=== PATIENT | female | born 1960 | race Caucasian/White ===

== ENCOUNTER 2016-07-09 10:08 | Day surgery (SDC) | payer OTHER, MEDICARE ==
[2016-07-09] MEDS ORDERED: D5 LR 1000 ML 1,000 ML IV ONE (11:06)
[2016-07-09] MEDS ORDERED: NS 500 ML IV 500 ML IV ONE (11:16)
[2016-07-09] MEDS ORDERED: DIPRIVAN VIAL 20 ML ONE (12:52)
[2016-07-09 13:42] VITALS: BP 124/68
== END 2016-07-09 13:40 | disposition home or self-care (01) ==
LOC: SURG1 10:08
PROVIDERS: ATTEND Internal Medicine Gastroenterology
PROC: 0DJD8ZZ Inspection of Lower Intestinal Tract, Via Natural or Artificial Opening Endoscopic (ICD-10-PCS; principal; 2016-07-09 14:00)
PROC: 0DBN8ZX Excision of Sigmoid Colon, Via Natural or Artificial Opening Endoscopic, Diagnostic (ICD-10-PCS; principal; 2016-07-09 14:00)
DX: Z12.11 Encounter for screening for malignant neoplasm of colon (principal); K92.1 Melena; D64.89 Other specified anemias; R10.84 Generalized abdominal pain; K63.5 Polyp of colon; K64.0 First degree hemorrhoids; Z87.19 Personal history of other diseases of the digestive system
CPT/HCPCS: A4222; A4217; J3490; J7120

== ENCOUNTER 2017-02-17 22:26 | Emergency (ER) | payer OTHER, MEDICARE ==
[~2017-02-17 22:26] MED LIST: HumuLIN R IV ONE
[2017-02-17 22:52] VITALS: BMI 25.6
[2017-02-17] MEDS ORDERED: DUONEB 0.5 MG/3 MG NEB ONE (22:54)
--- NOTE | 2017-02-17 22:55 | DR.GENAD ---
HPI - PCP Primary Care Physician: [email or web address] - Complaint/Symptoms Chief Complaint Doctors Comments: Patient states that she had been on dialysis for two years. Has been doing well. She goes to dialysis three times weekly ( ). She did not go on yesterday. She states that she got tired today and slept more than usual and mom got concerned. Patient states that she is ok. Chief Complaint:: pt c/o sob pt did not go to dialysis yesterday scheduled tomorrow - Source History Provided: Patient - Mode of Arrival Mode of Arrival: EMS - Timing Onset of Chief Complaint: 02/10/17 PMH - PMH Past Medical History: Yes Past Medical History: Anemia, Anxiety, Arthritis, COPD, Dialysis, Hypertension, Renal Disease, Seizures Past Surgical History: No Surgical History: Lithotripsy - Family History History of Family Medical Conditions: Yes Family Medical History: Diabetes Mellitus, Hypertension - Social History Type of Tobacco Use: Cigarettes Does any household member use tobacco: No Alcohol Use: None Do you use any recreational Drugs:: No Lives With: Family Lives Where: Home - infectious screening In the last 2 months have you had wt loss of >10#?: NO Have you had fever, night sweats or hemotysis?: No Have you traveled outside the country in the last 6 months?: No Isolation: Standard ROS - Review of Systems Eyes: No Symptoms Reported ENTM: No Symptoms Reported Respiratoy: Wheezing (posterior base) Cardiovascular: No Symptoms Reported Gastrointestinal/Abdominal: No Symptoms Reported Genitourinary: No Symptoms Reported Neurological: No Symptoms Reported Musculoskeletal: No Symptoms Reported Integumentary: No Symptoms Reported Hematologic/Lymphatic: No Symptoms Reported Endocrine: No Symptoms Reported Psychiatric: No Symptoms Reported All Other Systems: Reviewed and Negative PE - Vital Signs Vitals: Temperature 97.5 F Pulse Rate 72 Respiratory Rate 20 Blood Pressure [Left Femoral 175/97 Artery] Blood Pressure [Right Arm] 154/71 Blood Pressure [Left Arm] 143/86 Blood Pressure 150/85 O2 Sat by Pulse Oximetry 98 - General Limitations: No Limitations General Appearance: Alert, In No Apparent Distress - Head Head Exam: Normal Inspection, Atraumatic - Eyes Eye exam: Normal Appearance, PERRL, EOMI - ENT ENT Exam: Normal Exam, Normal Oropharynx External Ear Exam: Normal External Inspection TM/Canal Exam: Bilateral Normal Nose Exam: Normal Nose Exam Mouth Exam: Normal Inspection Throat Exam: Normal Inspection - Neck Neck Exam: Normal Inspection, Full ROM - Chest Chest Inspection: Normal Inspection - Respiratory Respiratory Exam: Normal Lung Sounds Bilat Respiratory Exam: Bilateral Decreased Breath Sounds (base) - Cardiovascular Cardiovascular Exam: Regular Rate, Normal Rhythm - Abdominal Exam Abdominal Exam: Normal Inspection, Normal Bowel Sounds Abdominal Tenderness: negative: RUQ, RLQ, LUQ, LLQ, Epigastrium, Suprapubic, Diffuse, Mild, Moderate, Severe, Other - Extremities Extremities Exam: Normal Inspection, Full ROM - Neurologic Neurological Exam: Alert, Oriented X3, CN II-XII Intact - Psychiatric Psychiatric Exam: Normal Affect, Normal Mood - Skin Skin Exam: Warm, Dry, Intact Course - Reevaluation 1st: Improved ROR - Labs Reviewed Result Diagrams: 02/17/17 23:06 02/18/17 01:10 Laboratory: WBC 9.0 X10^3/uL (3.6-10.0) 02/17/17 23:06 RBC 3.73 X10^6/uL (3.5-5.4) 02/17/17 23:06 Hgb 12.0 g/dL (12.0-16.0) 02/17/17 23:06 Hct 36.9 % (36.0-47.0) 02/17/17 23:06 MCV 99.1 fL (80.0-100.0) 02/17/17 23:06 MCH 32.1 pg (27.0-34.0) 02/17/17 23:06 MCHC 32.4 g/dL (33.0-35.0) L 02/17/17 23:06 RDW 17.0 % (11.6-16.5) H 02/17/17 23:06 Plt Count 110 X10^3/uL (150.0-450.0) L 02/17/17 23:06 MPV 8.7 fL (7.4-11.0) 02/17/17 23:06 Neut % 79.5 % (42.0-75.0) H 02/17/17 23:06 Lymph % 9.1 % (21.0-51.0) L 02/17/17 23:06 [place] % 4.4 % (0.0-13.0) 02/17/17 23:06 Eos % 5.7 % (0.9-2.9) H 02/17/17 23:06 Baso % 1.3 % (0.2-1.0) H 02/17/17 23:06 Neut # 7.2 x10^3/uL (2.2-4.8) H 02/17/17 23:06 Lymph # 0.8 X10^3/uL (1.3-2.9) L 02/17/17 23:06 [place] # 0.4 x10^3/uL (0.3-0.8) 02/17/17 23:06 Eos # 0.5 x10^3/uL (0.0-0.2) H 02/17/17 23:06 Baso # 0.1 X10^3/uL (0.0-0.1) 02/17/17 23:06 Absolute Nucleated RBC 0.0 /100WBC 02/17/17 23:06 Sodium 138 mmol/L (136-145) 02/18/17 01:10 Corrected Sodium TNP 02/18/17 01:10 Potassium 5.5 mmol/L (3.5-5.1) H 02/18/17 01:10 Chloride 105 mmol/L (98-107) 02/18/17 01:10 Carbon Dioxide 17.4 mmol/L (21-32) L 02/18/17 01:10 BUN 99 mg/dL (7-18) H 02/18/17 01:10 Creatinine 10.14 mg/dL (0.55-1.02) H 02/18/17 01:10 Est GFR (MDRD) Af Amer 5 (>60) L 02/18/17 01:10 Est GFR (MDRD) Non-Af 4 (>60) L 02/18/17 01:10 Glucose 71 mg/dL (65-99) 02/18/17 01:10 Calcium 8.9 mg/dL (8.5-10.1) 02/18/17 01:10 - XRAY XRAY Interpreted by: Radiologist (Chest: No acute problem) - Diagnosis Discharge Problem: Hyperkalemia Asthmatic bronchitis with exacerbation Qualifiers: Asthma severity: mild Asthma persistence: intermittent Qualified Code(s): J45.21 - Mild intermittent asthma with (acute) exacerbation - Discharge Plan Condition: Stable - Follow ups/Referrals Follow ups/Referrals: MANDEEP CHAVEZ [Primary Care Provider] - 3 days - Instructions
[2017-02-17] MEDS ORDERED: DUONEB 0.5 MG/3 MG ONE (23:00)
[2017-02-17 23:15] LABS: BASOPHILS # (AUTO) 0.1 X10^3/uL (0.0-0.1); BASOPHILS % (AUTO) 1.3 % (0.2-1.0); EOSINOPHILS # (AUTO) 0.5 x10^3/uL (0.0-0.2); EOSINOPHILS % (AUTO) 5.7 % (0.9-2.9); HEMATOCRIT 36.9 % (36.0-47.0); LYMPHOCYTES # (AUTO) 0.8 X10^3/uL (1.3-2.9); LYMPHOCYTES % (AUTO) 9.1 % (21.0-51.0); MEAN CORPUSCULAR HEMOGLOBIN 32.1 pg (27.0-34.0); MEAN CORPUSCULAR HGB CONC 32.4 g/dL (33.0-35.0); MEAN CORPUSCULAR VOLUME 99.1 fL (80.0-100.0); MEAN PLATELET VOLUME 8.7 fL (7.4-11.0); MONOCYTES # (AUTO) 0.4 x10^3/uL (0.3-0.8); MONOCYTES % (AUTO) 4.4 % (0.0-13.0); NEUTROPHILS # (AUTO) 7.2 x10^3/uL (2.2-4.8); NEUTROPHILS % (AUTO) 79.5 % (42.0-75.0); PLATELET COUNT 110 X10^3/uL (150.0-450.0); RED BLOOD COUNT 3.73 X10^6/uL (3.5-5.4)
[2017-02-17 23:19] LABS: CALCIUM 8.4 mg/dL (8.5-10.1); CARBON DIOXIDE 17.2 mmol/L (21-32); CREATININE 10.22 mg/dL (0.55-1.02)
--- NOTE | 2017-02-17 23:52 | RAD ---
AP Chest Indication: Shortness of breath with COPD Comparison: None available Findings: The trachea is midline. The cardiac silhouette is unremarkable. Chronic interstitial lung changes ar e again present. The lungs are clear without focal infiltrate or effusion. The bony thorax is unrem arkable. IMPRESSION: 1. No acute cardiopulmonary abnormality. Reported By:
[2017-02-18] MEDS ORDERED: D50W ABBOJECT SYR IV ONE (00:02)
[2017-02-18] MEDS ORDERED: CALCIUM GLUCONATE 10% IV ONE ×2 (00:03→00:19)
[2017-02-18] MEDS ORDERED: PROVENTIL NEB TX 0.083% 2.5MG/ 3ML ONE ×3 (00:04→00:43)
[2017-02-18] MEDS ORDERED: D5 LR 1000 ML 1,000 ML with SODIUM BICARBONATE 8.4% INJ ADULT 100 ML IV ONE ×2 (00:05)
[2017-02-18] MEDS: PROVENTIL NEB TX 0.083% 2.5MG/ 3ML NEB SCH ×2 (00:06→00:10)
[2017-02-18] MEDS ORDERED: PROVENTIL NEB TX 0.083% 2.5MG/ 3ML NEB ONE ×2 (00:09→00:35)
[2017-02-18] MEDS ORDERED: D50W ABBOJECT SYR ONE (00:19)
[2017-02-18] MEDS ORDERED: HumuLIN R ONE ×2 (00:20→00:21)
[2017-02-18 02:08] LABS: BLOOD UREA NITROGEN 99 mg/dL (7-18); CALCIUM 8.9 mg/dL (8.5-10.1); CARBON DIOXIDE 17.4 mmol/L (21-32); CHLORIDE 105 mmol/L (98-107); CREATININE 10.14 mg/dL (0.55-1.02); SODIUM 138 mmol/L (136-145); eGFR BLACK RACES 5 (>60); eGFR NON BLACK RACES 4 (>60)
[2017-02-18 03:00] VITALS: BP 156/74
[2017-02-18] MEDS ORDERED: SNACK - Diabetic Appropriate PO SCH (20:00)
== END 2017-02-18 02:50 | disposition home or self-care (01) ==
LOC: ER 22:34
DX: J45.21 Mild intermittent asthma with (acute) exacerbation (principal); R73.9 Hyperglycemia, unspecified; Z72.0 Tobacco use
CPT/HCPCS: 36415; 71010; 80048; 85025; 94640; 96365; 96374; 96375; 99283; A4222; J0610; J1815; J3490; J7613; J7620

== ENCOUNTER → 2017-03-11 | Outpatient (CLI) | payer OTHER, MEDICARE ==
[2017-02-18 03:00] VITALS: BP 156/74
--- NOTE | 2017-03-11 10:09 | RAD ---
Examination: Chest, PA and lateral views History: SOB and chest pain, previous nephrectomy Comparison reference: 02/17/2017 Findings: Continued normal heart size with clear lungs and pleural spaces. Prominence of the right prakash perior mediastinal soft tissues is attributed to patient rotation. Impression: Considering technical differences, no change, no acute disease. Reported By:
== END ==
LOC: RAD 09:43
PROVIDERS: ATTEND Nurse Practitioner Family
DX: R06.02 Shortness of breath (principal); J20.8 Acute bronchitis due to other specified organisms; J41.8 Mixed simple and mucopurulent chronic bronchitis
CPT/HCPCS: 71020

== ENCOUNTER 2017-08-18 16:01 | Observation (INO) | payer OTHER, MEDICARE ==
[2017-08-18 16:09] VITALS: BMI 23.3
--- NOTE | 2017-08-18 16:16 | DR.GENAD ---
HPI - PCP Primary Care Physician: [id number] - Complaint/Symptoms Chief Complaint Doctors Comments: Patient was transferred from dialysis due to a little chest pain and leg cramping. She has no history of cardiac disease. PMH - PMH Past Medical History: Anemia, Anxiety, Arthritis, COPD, Dialysis, Hypertension, Renal Disease, Seizures Past Surgical History: No Surgical History: Lithotripsy - Family History Family Medical History: Diabetes Mellitus, Hypertension - Social History Do you use any recreational Drugs:: No ROS - Review of Systems Eyes: No Symptoms Reported ENTM: No Symptoms Reported Respiratoy: No Symptoms Reported Cardiovascular: No Symptoms Reported Gastrointestinal/Abdominal: No Symptoms Reported Genitourinary: No Symptoms Reported Neurological: No Symptoms Reported Musculoskeletal: No Symptoms Reported Integumentary: No Symptoms Reported Hematologic/Lymphatic: No Symptoms Reported Endocrine: No Symptoms Reported Psychiatric: No Symptoms Reported All Other Systems: Reviewed and Negative PE - Vital Signs Vitals: Temperature 98.6 F Pulse Rate 81 Respiratory Rate 18 Blood Pressure [Left Femoral 175/97 Artery] Blood Pressure [Right Arm] 156/74 Blood Pressure [Left Arm] 143/86 Blood Pressure 142/86 O2 Sat by Pulse Oximetry 98 - General General Appearance: Alert, In No Apparent Distress - Head Head Exam: Normal Inspection, Atraumatic - Eyes Eye exam: Normal Appearance, PERRL, EOMI - ENT ENT Exam: Normal Exam, Normal Oropharynx External Ear Exam: Normal External Inspection TM/Canal Exam: Bilateral Normal Nose Exam: Normal Nose Exam Mouth Exam: Normal Inspection Throat Exam: Normal Inspection - Neck Neck Exam: Normal Inspection - Chest Chest Inspection: Normal Inspection - Respiratory Respiratory Exam: Normal Lung Sounds Bilat Respiratory Exam: Bilateral Clear to Auscultation - Cardiovascular Cardiovascular Exam: Regular Rate, Normal Rhythm - Abdominal Exam Abdominal Exam: Normal Inspection Abdominal Tenderness: negative: RUQ, RLQ, LUQ, LLQ, Epigastrium, Suprapubic, Diffuse, Mild, Moderate, Severe, Other - Extremities Extremities Exam: Normal Inspection, Other (cramping of lower extremities) - Back Back Exam: Normal Inspection - Neurologic Neurological Exam: Alert, Oriented X3, CN II-XII Intact - Psychiatric Psychiatric Exam: Normal Affect - Skin Skin Exam: Warm, Dry, Intact Course - Reevaluation 1st: Improved - Consultation Called: 17:35 (Dr Tatum agreed to admit for further evaluation and treatment) - Education/Counseling Educated On: Treatment, Diagnosis ROR - Labs Reviewed Laboratory Results Reviewed?: Yes (D Dimer [id number]) Result Diagrams: 08/18/17 16:25 08/18/17 16:25 Laboratory: WBC 4.9 X10^3/uL (3.6-10.0) 08/18/17 16:25 RBC 4.37 X10^6/uL (3.5-5.4) 08/18/17 16:25 Hgb 14.1 g/dL (12.0-16.0) 08/18/17 16:25 Hct 41.7 % (36.0-47.0) 08/18/17 16:25 MCV 95.5 fL (80.0-100.0) 08/18/17 16: MCH 32.2 pg (27.0-34.0) 08/18/17 16:25 MCHC 33.7 g/dL (33.0-35.0) 08/18/17 16:25 RDW 15.0 % (11.6-16.5) 08/18/17 16:25 Plt Count 76 X10^3/uL (150.0-450.0) L 08/18/17 16:25 MPV 8.3 fL (7.4-11.0) 08/18/17 16:25 Neut % (Auto) 76.5 % (42.0-75.0) H 08/18/17 16:25 Lymph % (Auto) 11.8 % (21.0-51.0) L 08/18/17 16:25 [place] % (Auto) 7.4 % (0.0-13.0) 08/18/17 16:25 Eos % (Auto) 3.6 % (0.9-2.9) H 08/18/17 16:25 Baso % (Auto) 0.7 % (0.2-1.0) 08/18/17 16:25 Neut # (Auto) 3.7 x10^3/uL (2.2-4.8) 08/18/17 16:25 Lymph # (Auto) 0.6 X10^3/uL (1.3-2.9) L 08/18/17 16:25 [place] # (Auto) 0.4 x10^3/uL (0.3-0.8) 08/18/17 16:25 Eos # (Auto) 0.2 x10^3/uL (0.0-0.2) 08/18/17 16:25 Baso # (Auto) 0.0 X10^3/uL (0.0-0.1) 08/18/17 16:25 Absolute Nucleated RBC 0.0 /100WBC 08/18/17 16:25 INR Target Range - 08/18/17 16:25 INR 0.94 (0.8-1.3) 08/18/17 16:25 APTT 25.1 SECONDS (22.9-36.5) 08/18/17 16:25 PTT Comment - 08/18/17 16:25 D-Dimer 791 ng/mL (0-400) H* 08/18/17 16:25 Sodium 136 mmol/L (136-145) 08/18/17 16:25 Corrected Sodium TNP 08/18/17 16:25 Potassium 3.6 mmol/L (3.5-5.1) 08/18/17 16:25 Chloride 95 mmol/L (98-107) L 08/18/17 16:25 Carbon Dioxide 26.0 mmol/L (21-32) 08/18/17 16:25 BUN 19 mg/dL (7-18) H 08/18/17 16:25 Creatinine 4.49 mg/dL (0.55-1.02) H 08/18/17 16:25 Est GFR (MDRD) Af Amer 13 (>60) L 08/18/17 16:25 Est GFR (MDRD) Non-Af 11 (>60) L 08/18/17 16:25 Glucose 84 mg/dL (65-99) 08/18/17 16:25 Calcium 8.6 mg/dL (8.5-10.1) 08/18/17 16:25 Corrected Calcium TNP 08/18/17 16:25 Magnesium 2.5 mg/dL (1.7-2.9) 08/18/17 16:25 Total Bilirubin 0.70 mg/dL (0.2-1.0) 08/18/17 16:25 AST 15 Units/L (15-37) 08/18/17 16:25 ALT 19 Units/L (12-78) 08/18/17 16:25 Alkaline Phosphatase 81 Units/L (46-116) 08/18/17 16:25 Creatine Kinase 109 Units/L (26-192) 08/18/17 16:25 CK-MB (CK-2) 2.6 ng/mL (0-4.0) 08/18/17 16:25 CK/CKMB % Calc 2.4 % (<4) 08/18/17 16:25 Troponin I 0.09 ng/mL (0-1.5) 08/18/17 16:25 Total Protein 8.5 g/dL (6.4-8.2) H 08/18/17 16:25 Albumin 5.1 g/dL (3.4-5.0) H 08/18/17 16:25 Globulin 3.4 g/dL (2.5-4.5) 08/18/17 16:25 Albumin/Globulin Ratio 1.5 Ratio (1.1-2.1) 08/18/17 16:25 - Diagnosis Discharge Problem: D-dimer, elevated, R/O Pulmonary Emboli Renal failure Qualifiers: Renal failure chronicity: chronic Chronic kidney disease stage: unspecified stage Qualified Code(s): N18.9 - Chronic kidney disease, unspecified - Discharge Plan Condition: Stable - Follow ups/Referrals Follow ups/Referrals: MANDEEP CHAVEZ [Primary Care Provider] - 3 days - Instructions
[2017-08-18 16:36] LABS: BASOPHILS % (AUTO) 0.7 % (0.2-1.0); EOSINOPHILS # (AUTO) 0.2 x10^3/uL (0.0-0.2); EOSINOPHILS % (AUTO) 3.6 % (0.9-2.9); HEMATOCRIT 41.7 % (36.0-47.0); HEMOGLOBIN 14.1 g/dL (12.0-16.0); LYMPHOCYTES # (AUTO) 0.6 X10^3/uL (1.3-2.9); LYMPHOCYTES % (AUTO) 11.8 % (21.0-51.0); MEAN CORPUSCULAR HEMOGLOBIN 32.2 pg (27.0-34.0); MEAN CORPUSCULAR HGB CONC 33.7 g/dL (33.0-35.0); MEAN CORPUSCULAR VOLUME 95.5 fL (80.0-100.0); MEAN PLATELET VOLUME 8.3 fL (7.4-11.0); MONOCYTES # (AUTO) 0.4 x10^3/uL (0.3-0.8); MONOCYTES % (AUTO) 7.4 % (0.0-13.0); NEUTROPHILS # (AUTO) 3.7 x10^3/uL (2.2-4.8); NEUTROPHILS % (AUTO) 76.5 % (42.0-75.0); PLATELET COUNT 76 X10^3/uL (150.0-450.0); RED BLOOD COUNT 4.37 X10^6/uL (3.5-5.4); WHITE BLOOD COUNT 4.9 X10^3/uL (3.6-10.0)
--- NOTE | 2017-08-18 16:38 | RAD ---
HISTORY: Chest pain. Study: AP portable chest Comparison: 03/11/2017 Findings: Minimal patchy infiltrate is noted in the left lung base. Otherwise , the lungs are clear. The hear t size is normal. Mild tortuosity of the aorta is present. Mild widening of the superior mediastinu m is present, unchanged. No acute bony abnormalities are identified. IMPRESSION: 1. Minimal patchy infiltrate in the left lung base. 2. Otherwise, no radiographic evidence of acute cardiopulmonary disease or significant change is not ed when compared to the prior examination. Reported By:
[2017-08-18 16:55] LABS: BLOOD UREA NITROGEN 19 mg/dL (7-18); CALCIUM 8.6 mg/dL (8.5-10.1); CHLORIDE 95 mmol/L (98-107); CREATININE 4.49 mg/dL (0.55-1.02); SODIUM 136 mmol/L (136-145); TROPONIN I 0.09 ng/mL (0-1.5); eGFR BLACK RACES 13 (>60); eGFR NON BLACK RACES 11 (>60)
[2017-08-18] MEDS ORDERED: NORFLEX INJ IVP ONE (16:58)
[2017-08-18 17:00] LABS: ALANINE AMINOTRANSFERASE 19 Units/L (12-78); ALKALINE PHOSPHATASE 81 Units/L (46-116); ASPARTATE AMINO TRANSFERASE 15 Units/L (15-37); CKMB % 2.4 % (<4); CREATINE KINASE 109 Units/L (26-192); CREATINE KINASE MB 2.6 ng/mL (0-4.0); TOTAL PROTEIN 8.5 g/dL (6.4-8.2)
[2017-08-18] MEDS ORDERED: NS 1000 ML 1,000 ML IV SCH (17:00)
[2017-08-18] MEDS ORDERED: NORFLEX INJ ONE (17:01)
[2017-08-18 17:07] LABS: ALBUMIN 5.1 g/dL (3.4-5.0); MAGNESIUM 2.5 mg/dL (1.7-2.9)
[2017-08-18] MEDS ORDERED: NORFLEX INJ IM PRN (18:24)
[2017-08-18] MEDS ORDERED: PATIENT'S HOME MEDICATION (Acetaminophen With Codeine [Tylenol W/Codeine #4 (300 Mg/60 Mg) PO SCH (18:30)
[2017-08-18] MEDS ORDERED: PHENERGAN TAB 25 MG PO PRN (18:49)
[2017-08-18] MEDS ORDERED: PROVENTIL NEB TX 0.083% 2.5MG/ 3ML ONE (19:14)
[2017-08-18] MEDS ORDERED: PROVENTIL NEB TX 0.083% 2.5MG/ 3ML NEB PRN (19:39)
[2017-08-18] MEDS: NS 1000 ML 1,000 ML IV SCH (20:59)
[2017-08-18] MEDS: DESYREL PO SCH (21:08)
[2017-08-18] MEDS: ZANTAC PO SCH (21:09)
[2017-08-18] MEDS: XANAX PO SCH (21:09)
[2017-08-18] MEDS: APRESOLINE TAB 25 MG PO SCH (21:09)
[2017-08-18] MEDS: TOPROL XL PO SCH (21:09)
[2017-08-18] MEDS: NEURONTIN CAP 100 MG PO SCH (21:10)
[2017-08-18] MEDS: NORCO 7.5/325 MG TAB PO PRN (21:10)
[2017-08-18] MEDS: FLEXERIL TAB 10 MG PO SCH (21:10)
[2017-08-18] MEDS: KEPPRA TAB 500 MG PO SCH (21:10)
[2017-08-18 23:56] LABS: CKMB % 1.4 % (<4); CREATINE KINASE 344 Units/L (26-192); TROPONIN I < 0.02 ng/mL (0-1.5)
[2017-08-19] LABS: CREATINE KINASE MB 4.7 ng/mL (0-4.0)
[2017-08-19] MEDS: PROVENTIL NEB TX 0.083% 2.5MG/ 3ML NEB SCH ×4 (01:10→17:09)
[2017-08-19] MEDS: NS 1000 ML 1,000 ML IV SCH ×3 (03:35→22:11)
[2017-08-19] MEDS: FLEXERIL TAB 10 MG PO SCH ×3 (05:17→21:07)
[2017-08-19] MEDS: APRESOLINE TAB 25 MG PO SCH ×3 (05:17→21:07)
[2017-08-19] MEDS: NORCO 7.5/325 MG TAB PO PRN ×3 (05:17→20:10)
[2017-08-19] MEDS: NEURONTIN CAP 100 MG PO SCH ×3 (05:18→21:07)
[2017-08-19 06:12] LABS: BASOPHILS % (AUTO) 1.2 % (0.2-1.0); EOSINOPHILS # (AUTO) 0.1 x10^3/uL (0.0-0.2); EOSINOPHILS % (AUTO) 3.9 % (0.9-2.9); HEMATOCRIT 36.4 % (36.0-47.0); HEMOGLOBIN 12.1 g/dL (12.0-16.0); LYMPHOCYTES % (AUTO) 37.7 % (21.0-51.0); MEAN CORPUSCULAR HEMOGLOBIN 31.8 pg (27.0-34.0); MEAN CORPUSCULAR HGB CONC 33.3 g/dL (33.0-35.0); MEAN CORPUSCULAR VOLUME 95.3 fL (80.0-100.0); MEAN PLATELET VOLUME 8.9 fL (7.4-11.0); MONOCYTES # (AUTO) 0.2 x10^3/uL (0.3-0.8); MONOCYTES % (AUTO) 8.8 % (0.0-13.0); NEUTROPHILS # (AUTO) 1.3 x10^3/uL (2.2-4.8); NEUTROPHILS % (AUTO) 48.4 % (42.0-75.0); PLATELET COUNT 59 X10^3/uL (150.0-450.0); RED BLOOD COUNT 3.82 X10^6/uL (3.5-5.4); RED CELL DISTRIBUTION WIDTH 15.4 % (11.6-16.5); WHITE BLOOD COUNT 2.7 X10^3/uL (3.6-10.0)
[2017-08-19 07:09] LABS: ALANINE AMINOTRANSFERASE 20 Units/L (12-78); ALBUMIN 3.7 g/dL (3.4-5.0); ALKALINE PHOSPHATASE 72 Units/L (46-116); ASPARTATE AMINO TRANSFERASE 12 Units/L (15-37); BLOOD UREA NITROGEN 32 mg/dL (7-18); CALCIUM 8.1 mg/dL (8.5-10.1); CARBON DIOXIDE 24.6 mmol/L (21-32); CHLORIDE 102 mmol/L (98-107); CKMB % 1.1 % (<4); COR NA(FOR HYPERGLY) 141 mmol/L (136-145); CREATINE KINASE 389 Units/L (26-192); CREATININE 6.02 mg/dL (0.55-1.02); SODIUM 139 mmol/L (136-145); TOTAL PROTEIN 6.7 g/dL (6.4-8.2); TROPONIN I < 0.02 ng/mL (0-1.5); eGFR BLACK RACES 9 (>60); eGFR NON BLACK RACES 8 (>60)
[2017-08-19 07:20] LABS: CREATINE KINASE MB 4.1 ng/mL (0-4.0)
[2017-08-19] MEDS: KEPPRA TAB 500 MG PO SCH ×2 (09:47→20:09)
[2017-08-19] MEDS: TOPROL XL PO SCH ×2 (09:47→20:10)
[2017-08-19] MEDS: COZAAR PO SCH (09:47)
[2017-08-19] MEDS: PROTONIX TAB 40 MG PO SCH (09:48)
[2017-08-19] MEDS: MIRALAX POWDER (1 DOSE 17GM) PO SCH (09:48)
[2017-08-19] MEDS: FOLIC ACID PO SCH (09:48)
[2017-08-19] MEDS: ZANTAC PO SCH (09:48)
[2017-08-19] MEDS: VIT B COMPLEX AND C PO SCH (09:48)
[2017-08-19] MEDS: XANAX PO SCH ×2 (09:49→20:10)
--- NOTE | 2017-08-19 12:57 | NM ---
HISTORY: 56-year-old female with chest pain, shortness breath and elevated D-dimer. History of COPD a nd hypertension. Study: Nuclear Medicine Ventilation Perfusion Study Comparison: Chest radiograph 08/18/2017 Technique: After the administration of 5.5 mCi of technetium 99m MAA followed by inhalation of 30.2 m Ci of technetium 99m DTPA, anterior, posterior, and lateral perfusion and ventilation images were sub mitted. Findings: Mildly heterogenous radiotracer uptake on ventilation/perfusion imaging with small nonanatomic matche d defects on ventilation and perfusion in a patient with COPD without significant segmental or subseg mental defect to suggest a pulmonary embolus. IMPRESSION: 1. Low probability V/Q scan in a patient with COPD. Reported By:
--- NOTE | 2017-08-19 13:01 | DR.H&P ---
H&P - History & Physical for Day of: H&P Date: 08/18/17 - Chief Complaint Chief Complaint: CHEST PAIN AND LEG CRAMPS - Allergies Allergies/Adverse Reactions: Allergies Allergy/AdvReac Type Severity Reaction Status Date / Time No Known Drug Allergies Allergy Verified 02/17/17 23:01 - History of Present Illness History of Present Illness: 56 WF ER ADMISSION WITH CO CP AND SEVERE LEG CRAMPS FOLLOWING DIALYSIS. PT STATES PAIN WAS CENTRAL CHEST PAIN, DENIES ANY HX OF CAD. PT HAS HX OF CRF ON DYALYSIS, HTN, OA, SEIZURE DISORDER. PT ADMITTED FOR EVALUATION OF CP, R/O AMI - Past Medical History Past Medical History: Anemia, Anxiety, Arthritis, COPD, Dialysis, Hypertension, Renal Disease, Seizures - Past Surgical History Surgical History: Lithotripsy Additional Surgical History: kidney removed. DIALYSIS ACCESS DEVICE - Family History Family Medical History: Diabetes Mellitus, Cancer - Social History Does patient currently use any type of tobacco product: Yes Have you used tobacco products in the last 12 months: Yes Type of Tobacco Use: Cigarettes Does any household member use tobacco: No Alcohol Use: None Drug Use: None - Medications Home Medications: Acetaminophen with Codeine [Tylenol w/Codeine #4 (300 mg/60 mg)] 1 tab PO TID [History Confirmed 08/19/17] Alprazolam [Alprazolam] 1 mg PO BID 08/18/17 [History Confirmed 08/19/17] Cyclobenzaprine HCl [Flexeril] 5 mg PO TID 08/18/17 [History Confirmed 08/19/17] Folic Acid/Vit B Complex and C [Dialyvite 800 Tablet] 1 tab PO DAILY 08/18/17 [ History Confirmed 08/19/17] Gabapentin [Gabapentin] 100 mg PO TID 08/18/17 [History Confirmed 08/19/17] Hydralazine HCl [Hydralazine HCl 50 mg] 50 mg PO TID 08/18/17 [History Confirmed 08/19/17] Pantoprazole Sodium 40 mg [PROTONIX 40 MG *] 40 mg PO DAILY 08/18/17 [History Confirmed 08/19/17] Polyethylene Glycol Pwd Ud [MIRALAX POWDER (17 GM DOSE) *] 1 cap PO DAILY [History Confirmed 08/19/17] Promethazine HCl 12.5 mg PO BID PRN 08/18/17 [History Confirmed 08/19/17] Ranitidine HCl [ZANTAC TAB 150 MG *] 150 mg PO BID 08/18/17 [History Confirmed 08/19/17] Trazodone HCl [Trazodone HCl] 50 mg PO HS 08/18/17 [History Confirmed 08/19/17] - Review of Systems Constitutional: Weakness Eyes: No Symptoms Reported ENT: No Symptoms Reported Respiratory: No Symptoms Reported Cardiovascular: Chest Pain Gastrointestinal: Nausea Musculoskeletal: No Symptoms Reported Skin: No Symptoms Reported Neurological: Weakness, Seizures (HX OF SEIZURES) - Physical Exam Vital Signs: Temperature 98.4 F Pulse Rate [Apical] 66 Pulse Rate 76 Respiratory Rate 16 Blood Pressure [Left Femoral 175/97 Artery] Blood Pressure [Right Arm] 163/87 Blood Pressure [Left Arm] 143/86 Blood Pressure 142/86 O2 Sat by Pulse Oximetry 95 Oriented: Normal Eyes: Normal Ear: Normal Nose: Normal Throat: Normal Respiratory: RLL Diminished, LLL Diminished Cardiovascular: Normal : Normal Auscultation: Bowel Sounds: Normal Palpation: Normal Tenderness: Normal Skin: Decreased Turgur Musculoskeletal: Back:Lumbar Psychiatric: Anxiety Affect: Anxious Speech Pattern: Clear, Appropriate - Assessment/Plan (1) Chest pain Status: Acute Plan: ADMIT, ICU SERIAL CE. EKG'S, SUPPLEMENTAL O2, BP MONITORING. I & OS, SEIZURE PRECAUTIONS. ADMISSION LABS, UA, CXR (2) Renal failure Qualifiers: Renal failure chronicity: chronic Chronic kidney disease stage: unspecified stage Qualified Code(s): N18.9 - Chronic kidney disease, unspecified Status: Acute (3) End-stage renal disease on hemodialysis Status: Chronic (4) Hypertension Status: Chronic
--- NOTE | 2017-08-19 13:25 | PCM.PROG ---
Progress Note - Progress Note for Day of Date: 08/19/17 - Subjective Subjective: PT ADMITTED WITH CP ONE DAY AGO. STATES NO CP THIS AM, CO SLIGHT TELLES , LEG CRAMPS HAVE IMPROVED SINCE ADMISSION. PT STATES SHE THINKS SHE MAY HAVE HAD TOO MUCH FLUID REMOVED AT DIALYSIS YESTERDAY. PT IS SCHEDULED FOR ROUTINE DIAYLSIS TOMORROW. - Past Medical Family Social History Past Med/Fam/Surg Hx: No changes since H&P Allergies: Allergies No Known Drug Allergies Allergy (Verified 02/17/17 23:01) - Review of Systems ROS: No change since H&P - Vital Signs and I&O's Vital Signs: Temperature 98.4 F Pulse Rate [Apical] 66 Pulse Rate 64 Respiratory Rate 16 Blood Pressure [Left Femoral 175/97 Artery] Blood Pressure [Right Arm] 163/87 Blood Pressure [Left Arm] 143/86 Blood Pressure 142/86 O2 Sat by Pulse Oximetry 97 Intake and Output: Intake & Output 08/17/17 08/18/17 08/19/17 08/20/17 11:59 11:59 11:59 11:59 Intake Total 1531 800 Balance 1531 800 - Physical Exam Oriented: Normal Eyes: Normal Ear: Normal Nose: Normal Throat: Normal Respiratory: Diminished Cardiovascular: Normal : Normal Auscultation: Bowel Sounds: Normal Tenderness: Normal Skin: Decreased Turgur Musculoskeletal: Back:Lumbar Psychiatric: Anxiety Affect: Anxious Speech Pattern: Clear, Appropriate - Laboratory and Diagnostics Result Diagrams: 08/19/17 05:20 08/19/17 05:20 Labs: Laboratory WBC 2.7 X10^3/uL (3.6-10.0) L 08/19/17 05:20 RBC 3.82 X10^6/uL (3.5-5.4) 08/19/17 05:20 Hgb 12.1 g/dL (12.0-16.0) D 08/19/17 05:20 Hct 36.4 % (36.0-47.0) 08/19/17 05:20 MCV 95.3 fL (80.0-100.0) 08/19/17 05:20 MCH 31.8 pg (27.0-34.0) 08/19/17 05:20 MCHC 33.3 g/dL (33.0-35.0) 08/19/17 05:20 RDW 15.4 % (11.6-16.5) 08/19/17 05:20 Plt Count 59 X10^3/uL (150.0-450.0) L 08/19/17 05:20 MPV 8.9 fL (7.4-11.0) 08/19/17 05:20 Neut % (Auto) 48.4 % (42.0-75.0) 08/19/17 05:20 Lymph % (Auto) 37.7 % (21.0-51.0) 08/19/17 05:20 [place] % (Auto) 8.8 % (0.0-13.0) 08/19/17 05:20 Eos % (Auto) 3.9 % (0.9-2.9) H 08/19/17 05:20 Baso % (Auto) 1.2 % (0.2-1.0) H 08/19/17 05:20 Neut # (Auto) 1.3 x10^3/uL (2.2-4.8) L 08/19/17 05:20 Lymph # (Auto) 1.0 X10^3/uL (1.3-2.9) L 08/19/17 05:20 [place] # (Auto) 0.2 x10^3/uL (0.3-0.8) L 08/19/17 05:20 Eos # (Auto) 0.1 x10^3/uL (0.0-0.2) 08/19/17 05:20 Baso # (Auto) 0.0 X10^3/uL (0.0-0.1) 08/19/17 05:20 Absolute Nucleated RBC 0.1 /100WBC 08/19/17 05:20 INR Target Range - 08/18/17 16:25 INR 0.94 (0.8-1.3) 08/18/17 16:25 APTT 25.1 SECONDS (22.9-36.5) 08/18/17 16:25 PTT Comment - 08/18/17 16:25 D-Dimer 791 ng/mL (0-400) H* 08/18/17 16:25 Sodium 139 mmol/L (136-145) 08/19/17 05:20 Corrected Sodium 141 mmol/L (136-145) 08/19/17 05:20 Potassium 3.8 mmol/L (3.5-5.1) 08/19/17 05:20 Chloride 102 mmol/L (98-107) 08/19/17 05:20 Carbon Dioxide 24.6 mmol/L (21-32) 08/19/17 05:20 BUN 32 mg/dL (7-18) H 08/19/17 05:20 Creatinine 6.02 mg/dL (0.55-1.02) H 08/19/17 05:20 Est GFR (MDRD) Af Amer 9 (>60) L 08/19/17 05:20 Est GFR (MDRD) Non-Af 8 (>60) L 08/19/17 05:20 Glucose 175 mg/dL (65-99) H 08/19/17 05:20 Calcium 8.1 mg/dL (8.5-10.1) L 08/19/17 05:20 Corrected Calcium TNP 08/19/17 05:20 Magnesium 2.5 mg/dL (1.7-2.9) 08/18/17 16:25 Total Bilirubin 0.30 mg/dL (0.2-1.0) 08/19/17 05:20 AST 12 Units/L (15-37) L 08/19/17 05:20 ALT 20 Units/L (12-78) 08/19/17 05:20 Alkaline Phosphatase 72 Units/L (46-116) 08/19/17 05:20 Creatine Kinase 389 Units/L (26-192) H 08/19/17 05:20 CK-MB (CK-2) 4.1 ng/mL (0-4.0) H 08/19/17 05:20 CK/CKMB % Calc 1.1 % (<4) 08/19/17 05:20 Troponin I < 0.02 ng/mL (0-1.5) 08/19/17 05:20 Total Protein 6.7 g/dL (6.4-8.2) 08/19/17 05:20 Albumin 3.7 g/dL (3.4-5.0) 08/19/17 05:20 Globulin 3.0 g/dL (2.5-4.5) 08/19/17 05:20 Albumin/Globulin Ratio 1.2 Ratio (1.1-2.1) 08/19/17 05:20 - Plan (1) Chest pain Status: Acute Plan: SERIAL CE. EKG'S STABLE, SUPPLEMENTAL O2, BP MONITORING. I & OS, SEIZURE PRECAUTIONS. ADMISSION LABS, UA, CXR (2) Renal failure Status: Acute Qualifiers: Renal failure chronicity: chronic Chronic kidney disease stage: unspecified stage Qualified Code(s): N18.9 - Chronic kidney disease, unspecified Plan: MONITOR BP, I & OS, CMP (3) End-stage renal disease on hemodialysis Status: Chronic (4) Hypertension Status: Chronic (5) Seizure disorder Status: Acute
[2017-08-19] MEDS ORDERED: APRESOLINE INJ 20 MG VIAL IVP PRN (17:23)
[2017-08-19] MEDS: PATIENT'S HOME MEDICATION PO SCH (17:36)
[2017-08-19] MEDS ORDERED: PATIENT'S HOME MEDICATION PO SCH (18:00)
[2017-08-19] MEDS: DESYREL PO SCH (20:09)
[2017-08-20] MEDS: PROVENTIL NEB TX 0.083% 2.5MG/ 3ML NEB SCH ×2 (01:30→06:15)
[2017-08-20] MEDS: NEURONTIN CAP 100 MG PO SCH (05:12)
[2017-08-20] MEDS: NORCO 7.5/325 MG TAB PO PRN (05:12)
[2017-08-20] MEDS: FLEXERIL TAB 10 MG PO SCH (05:12)
[2017-08-20] MEDS: APRESOLINE TAB 25 MG PO SCH (05:12)
[2017-08-20 05:23] LABS: BASOPHILS % (AUTO) 0.8 % (0.2-1.0); EOSINOPHILS # (AUTO) 0.1 x10^3/uL (0.0-0.2); EOSINOPHILS % (AUTO) 4.7 % (0.9-2.9); HEMATOCRIT 35.4 % (36.0-47.0); HEMOGLOBIN 11.8 g/dL (12.0-16.0); LYMPHOCYTES % (AUTO) 36.9 % (21.0-51.0); MEAN CORPUSCULAR HEMOGLOBIN 32.1 pg (27.0-34.0); MEAN CORPUSCULAR HGB CONC 33.2 g/dL (33.0-35.0); MEAN CORPUSCULAR VOLUME 96.4 fL (80.0-100.0); MONOCYTES # (AUTO) 0.2 x10^3/uL (0.3-0.8); MONOCYTES % (AUTO) 7.8 % (0.0-13.0); NEUTROPHILS # (AUTO) 1.4 x10^3/uL (2.2-4.8); NEUTROPHILS % (AUTO) 49.8 % (42.0-75.0); PLATELET COUNT 59 X10^3/uL (150.0-450.0); RED BLOOD COUNT 3.67 X10^6/uL (3.5-5.4); WHITE BLOOD COUNT 2.7 X10^3/uL (3.6-10.0)
[2017-08-20 05:33] LABS: ALANINE AMINOTRANSFERASE 21 Units/L (12-78); ALBUMIN 3.4 g/dL (3.4-5.0); ALKALINE PHOSPHATASE 64 Units/L (46-116); ASPARTATE AMINO TRANSFERASE 21 Units/L (15-37); BLOOD UREA NITROGEN 45 mg/dL (7-18); CALCIUM 8.4 mg/dL (8.5-10.1); CARBON DIOXIDE 22.7 mmol/L (21-32); CHLORIDE 101 mmol/L (98-107); SODIUM 136 mmol/L (136-145); TOTAL PROTEIN 6.2 g/dL (6.4-8.2); eGFR BLACK RACES 8 (>60); eGFR NON BLACK RACES 7 (>60)
[2017-08-20] MEDS ORDERED: RENAGEL PO PRN (07:00)
[2017-08-20] MEDS: TOPROL XL PO SCH (08:36)
[2017-08-20] MEDS: ZANTAC PO SCH (08:36)
[2017-08-20] MEDS: XANAX PO SCH (08:37)
[2017-08-20] MEDS: PROTONIX TAB 40 MG PO SCH (08:37)
[2017-08-20] MEDS: KEPPRA TAB 500 MG PO SCH (08:37)
[2017-08-20] MEDS: MIRALAX POWDER (1 DOSE 17GM) PO SCH (08:37)
[2017-08-20] MEDS: COZAAR PO SCH (08:37)
[2017-08-20] MEDS: PATIENT'S HOME MEDICATION PO SCH (08:38)
[2017-08-20] MEDS: VIT B COMPLEX AND C PO SCH (08:38)
[2017-08-20] MEDS: FOLIC ACID PO SCH (08:38)
[2017-08-20 11:21] VITALS: BP 164/86
== END 2017-08-20 11:10 | disposition home or self-care (01) ==
LOC: ER 16:03 → ICU 18:12
PROVIDERS: ADMIT Internal Medicine; ATTEND Internal Medicine
DX: R07.89 Other chest pain (principal); I12.0 Hypertensive chronic kidney disease with stage 5 chronic kidney disease or end stage renal disease; N18.6 End stage renal disease; Z99.2 Dependence on renal dialysis; Z90.5 Acquired absence of kidney; R94.31 Abnormal electrocardiogram [ECG] [EKG]; G40.909 Epilepsy, unspecified, not intractable, without status epilepticus; M79.605 Pain in left leg; M79.604 Pain in right leg
CPT/HCPCS: 36415; 71045; 78582; 80053; 82550; 82553; 83735; 84484; 85025; 85378; 85610; 85730; 93005; 93010; 94640; 96365; 96367; 96372; 99285; A4216; A4222; A9540; A9567; G0378; J0360; J2360; J7613

== ENCOUNTER 2017-08-24 00:36 | Emergency (ER) | payer OTHER, MEDICARE ==
[2017-08-24 00:51] VITALS: BMI 23.8
--- NOTE | 2017-08-24 01:00 | DR.GENAD ---
HPI - PCP Primary Care Physician: MAGDY CHAVEZ - HPI Comment HPI Comment: KNOWN PT WITH COPD AND ASTHMA WHO PRESENTED TO ED RESTLESS AND SOB. HER INHALER DID NOT HELP PATIENT.NO FEVER. - Complaint/Symptoms Chief Complaint Doctors Comments: INCRESING SOB FOR 4 DAYS. HAD DIALYSIS DONE WEDNESDAY, YESTERDAY. Chief Complaint:: TROUBLE BREATHING. STARTED YESTREDAY AFTERNOON. PT MOTHER STATED SHE HAS ALSO BEEN DISORIENTED. - Nurses notes reviewed Nurses Notes Review: Yes - Source History Provided: Patient - Mode of Arrival Mode of Arrival: Ambulatory - Timing Onset of Chief Complaint: 09/23/16 Came on: Gradually - Duration Duration: Constant Duration: Days - Severity Severity: Moderate PMH - PMH Past Medical History: Yes Past Medical History: Anxiety, COPD Past Medical History Comment: KIDNEY DISEASE Past Surgical History: Yes Surgical History: Neurosurgery - Family History History of Family Medical Conditions: Yes Family Medical History: Diabetes Mellitus, Hypertension - Social History Does patient currently use any type of tobacco product: Yes Have you used tobacco products in the last 12 months: Yes Type of Tobacco Use: Cigarettes How many years tobacco product used: 4 Alcohol Use: None Do you use any recreational Drugs:: No Lives With: Mom Lives Where: Home - infectious screening In the last 2 months have you had wt loss of >10#?: NO Have you had fever, night sweats or hemotysis?: No Have you traveled outside the country in the last 6 months?: No ROS - Review of Systems Constitutional: Fever Eyes: No Symptoms Reported Respiratoy: Productive Cough, Dry Cough, Short of Breath, Wheezing Gastrointestinal/Abdominal: No Symptoms Reported Genitourinary: No Symptoms Reported Neurological: No Symptoms Reported Musculoskeletal: No Symptoms Reported Integumentary: No Symptoms Reported Hematologic/Lymphatic: No Symptoms Reported Endocrine: No Symptoms Reported All Other Systems: Reviewed and Negative PE - Vital Signs Vitals: Temperature 97.7 F Pulse Rate [Right] 69 Pulse Rate 84 Respiratory Rate 29 Blood Pressure [Left Femoral 175/97 Artery] Blood Pressure [Right Arm] 127/66 Blood Pressure [Left Arm] 143/86 Blood Pressure 183/107 O2 Sat by Pulse Oximetry 96 - General Limitations: No Limitations General Appearance: Alert - Head Head Exam: Normal Inspection - Eyes Eye exam: Normal Appearance - ENT ENT Exam: Normal External Ear Exam External Ear Exam: Normal External Inspection TM/Canal Exam: Bilateral Normal Nose Exam: Normal Nose Exam Mouth Exam: Normal Inspection Throat Exam: Normal Inspection - Neck Neck Exam: Trachea Midline - Chest Chest Inspection: Symmetric Chest Wall Rise - Respiratory Respiratory Exam: Respiratory Distress Respiratory Exam: Bilateral Wheezing, Bilateral Rhonchi, Upper Wheezing, Upper Rhonchi, Lower Wheezing, Lower Rhonchi - Cardiovascular Cardiovascular Exam: Regular Rate, Normal Rhythm, Normal Heart Sounds - Abdominal Exam Abdominal Exam: Normal Bowel Sounds, Soft. negative: Tenderness - Extremities Extremities Exam: negative: Tenderness - Back Back Exam: Paraspinal Tenderness - Neurologic Neurological Exam: Alert, Oriented X3. negative: Reflexes Normal - Psychiatric Psychiatric Exam: Anxious - Skin Skin Exam: Dry MDM - Additional Information Additional Information Obtained From: Family - Differential Diagnosis Differential Diagnosis: RESPIRATORY DISTRESS, BRONCHITIS, PNEUMONIA, MO Course - Treatment Treatment: SEE ORDERS. - Consultation Consultation Comments: PATIENT ACCEPTED BT DR. HARVEY AT [facility] IN [place] AT THE ED . - Education/Counseling Education/Counseling: Patient, Family, Education Educated On: Treatment, Diagnosis ROR - Labs Reviewed Laboratory Results Reviewed?: Yes Result Diagrams: 08/24/17 01:20 08/24/17 01:20 Laboratory: WBC 5.5 X10^3/uL (3.6-10.0) 08/24/17 01:20 RBC 3.86 X10^6/uL (3.5-5.4) 08/24/17 01:20 Hgb 12.3 g/dL (12.0-16.0) 08/24/17 01:20 Hct 36.3 % (36.0-47.0) 08/24/17 01:20 MCV 94.1 fL (80.0-100.0) 08/24/17 01:20 MCH 31.9 pg (27.0-34.0) 08/24/17 01:20 MCHC 33.9 g/dL (33.0-35.0) 08/24/17 01:20 RDW 14.6 % (11.6-16.5) 08/24/17 01:20 Plt Count 98 X10^3/uL (150.0-450.0) L 08/24/17 01:20 MPV 9.1 fL (7.4-11.0) 08/24/17 01:20 Neut % (Auto) 62.4 % (42.0-75.0) 08/24/17 01:20 Lymph % (Auto) 24.1 % (21.0-51.0) 08/24/17 01:20 [place] % (Auto) 7.8 % (0.0-13.0) 08/24/17 01:20 Eos % (Auto) 4.6 % (0.9-2.9) H 08/24/17 01:20 Baso % (Auto) 1.1 % (0.2-1.0) H 08/24/17 01:20 Neut # (Auto) 3.5 x10^3/uL (2.2-4.8) 08/24/17 01:20 Lymph # (Auto) 1.3 X10^3/uL (1.3-2.9) 08/24/17 01:20 [place] # (Auto) 0.4 x10^3/uL (0.3-0.8) 08/24/17 01:20 Eos # (Auto) 0.3 x10^3/uL (0.0-0.2) H 08/24/17 01:20 Baso # (Auto) 0.1 X10^3/uL (0.0-0.1) 08/24/17 01:20 Absolute Nucleated RBC 0.0 /100WBC 08/24/17 01:20 Sample Site Rb 08/24/17 03:00 ABG pH 7.410 (7.35-7.45) 08/24/17 03:00 ABG pCO2 42.0 mmHg (35.0-45.0) 08/24/17 03:00 ABG pO2 70.0 mmHg (80.0-100.0) L 08/24/17 03:00 ABG HCO3 26.6 mmol/L (22-26) H 08/24/17 03:00 ABG O2 Saturation 94.0 % (90-100) 08/24/17 03:00 ABG Base Excess 1.7 mmol/L (-2.0-2.0) 08/24/17 03:00 [place] Test N/a 08/24/17 03:00 A-a Gradient 27.0 mmHg 08/24/17 03:00 FiO2 21.000 08/24/17 03:00 Blood Gas Comments [place] well ae 08/24/17 03:00 Sodium 139 mmol/L (136-145) 08/24/17 01:20 Corrected Sodium TNP 08/24/17 01:20 Potassium 5.2 mmol/L (3.5-5.1) H 08/24/17 01:20 Chloride 101 mmol/L (98-107) 08/24/17 01:20 Carbon Dioxide 27.7 mmol/L (21-32) 08/24/17 01:20 BUN 35 mg/dL (7-18) H 08/24/17 01:20 Creatinine 4.78 mg/dL (0.55-1.02) H 08/24/17 01:20 Est GFR (MDRD) Af Amer 12 (>60) L 08/24/17 01:20 Est GFR (MDRD) Non-Af 10 (>60) L 08/24/17 01:20 Glucose 89 mg/dL (65-99) 08/24/17 01:20 POC Glucose (mg/dL) 154 mg/dL (65-99) H 08/24/17 05:25 Lactic Acid 0.7 mmol/L (0.4-2.0) 08/24/17 01:20 Calcium 8.3 mg/dL (8.5-10.1) L 08/24/17 01:20 Corrected Calcium TNP 08/24/17 01:20 Total Bilirubin 0.40 mg/dL (0.2-1.0) 08/24/17 01:20 AST 80 Units/L (15-37) H 08/24/17 01:20 ALT 48 Units/L (12-78) 08/24/17 01:20 Alkaline Phosphatase 73 Units/L (46-116) 08/24/17 01:20 Creatine Kinase 2911 Units/L (26-192) H 08/24/17 01:20 CK-MB (CK-2) 5.2 ng/mL (0-4.0) H* 08/24/17 01:20 CK/CKMB % Calc 0.2 % (<4) 08/24/17 01:20 Troponin I < 0.02 ng/mL (0-1.5) 08/24/17 01:20 C-Reactive Protein 1.00 mg/L (0-3.0) 08/24/17 01:20 Total Protein 6.8 g/dL (6.4-8.2) 08/24/17 01:20 Albumin 3.8 g/dL (3.4-5.0) 08/24/17 01:20 Globulin 3.0 g/dL (2.5-4.5) 08/24/17 01:20 Albumin/Globulin Ratio 1.3 Ratio (1.1-2.1) 08/24/17 01:20 Specimen Type Clean catch urine 08/24/17 02:33 Urine Color Pale yellow (YELLOW) 08/24/17 02:33 Urine Appearance Clear (CLEAR) 08/24/17 02:33 Urine pH 8.0 (5.0 - 8.0) 08/24/17 02:33 Ur Specific [place] 1.010 (1.000-1.030) 08/24/17 02:33 Urine Protein 2+ (NEGATIVE) 08/24/17 02:33 Urine Glucose (UA) Negative (NEGATIVE) 08/24/17 02:33 Urine Ketones Negative (NEGATIVE) 08/24/17 02:33 Urine Occult Blood 4+ (NEGATIVE) 08/24/17 02:33 Urine Nitrite Negative (NEGATIVE) 08/24/17 02:33 Urine Bilirubin Negative (NEGATIVE) 08/24/17 02:33 Urine Urobilinogen Normal (NORMAL) 08/24/17 02:33 Ur Leukocyte Esterase Negative (NEGATIVE) 08/24/17 02:33 Urine RBC 0-2 /HPF (NONE SEEN) 08/24/17 02:33 Urine WBC None seen /HPF (NONE SEEN) 08/24/17 02:33 Ur Squamous Epith Cells Rare /HPF (NEGATIVE) 08/24/17 02:33 Urine Bacteria Negative /HPF (NEGATIVE) 08/24/17 02:33 Ur Culture Indicated? No/not indicated 08/24/17 02:33 - XRAY XRAY Interpreted by: Radiologist XRAY Findings: REPORT DISCUSS WITH PATIENT. - EKG Rhythm: NSR (EKG NOTRD) - Diagnosis Discharge Problem: COPD exacerbation, Respiratory distress, ESRD (end stage renal disease) on dialysis, Hyperkalemia Hypertension Qualifiers: Hypertension type: essential hypertension Qualified Code(s): I10 - Essential ( primary) hypertension - Discharge Plan Disposition: [facility]FER [facility] Condition: Stable - Follow ups/Referrals Follow ups/Referrals: MANDEEP CHAVEZ [Primary Care Provider] - 3 days - Instructions
[2017-08-24] MEDS ORDERED: SOLU-Medrol 125 MG VIAL IVP ONE (01:05)
[2017-08-24] MEDS ORDERED: DUONEB 0.5 MG/3 MG NEB ONE (01:05)
[2017-08-24] MEDS ORDERED: ATIVAN INJ 2 MG VIAL IVP ONE (01:07)
[2017-08-24] MEDS ORDERED: DUONEB 0.5 MG/3 MG ONE (01:10)
[2017-08-24] MEDS ORDERED: ATIVAN INJ 2 MG VIAL ONE ×2 (01:27→04:25)
[2017-08-24] MEDS ORDERED: SOLU-Medrol 125 MG VIAL ONE (01:28)
[2017-08-24] MEDS ORDERED: ROCEPHIN 1 GM IV PREMIX 1 GM/50 ML IV.SOLN. IV ONE (01:34)
[2017-08-24] MEDS ORDERED: ROCEPHIN VIAL 1 GM ONE (01:40)
[2017-08-24] MEDS ORDERED: NS 100 ML IV + SPIKE MINIBAG* 100 ML IV ONE (01:41)
[2017-08-24 01:42] LABS: BASOPHILS # (AUTO) 0.1 X10^3/uL (0.0-0.1); BASOPHILS % (AUTO) 1.1 % (0.2-1.0); EOSINOPHILS # (AUTO) 0.3 x10^3/uL (0.0-0.2); EOSINOPHILS % (AUTO) 4.6 % (0.9-2.9); HEMATOCRIT 36.3 % (36.0-47.0); HEMOGLOBIN 12.3 g/dL (12.0-16.0); LYMPHOCYTES # (AUTO) 1.3 X10^3/uL (1.3-2.9); LYMPHOCYTES % (AUTO) 24.1 % (21.0-51.0); MEAN CORPUSCULAR HEMOGLOBIN 31.9 pg (27.0-34.0); MEAN CORPUSCULAR HGB CONC 33.9 g/dL (33.0-35.0); MEAN CORPUSCULAR VOLUME 94.1 fL (80.0-100.0); MEAN PLATELET VOLUME 9.1 fL (7.4-11.0); MONOCYTES # (AUTO) 0.4 x10^3/uL (0.3-0.8); MONOCYTES % (AUTO) 7.8 % (0.0-13.0); NEUTROPHILS # (AUTO) 3.5 x10^3/uL (2.2-4.8); NEUTROPHILS % (AUTO) 62.4 % (42.0-75.0); PLATELET COUNT 98 X10^3/uL (150.0-450.0); RED BLOOD COUNT 3.86 X10^6/uL (3.5-5.4); RED CELL DISTRIBUTION WIDTH 14.6 % (11.6-16.5); WHITE BLOOD COUNT 5.5 X10^3/uL (3.6-10.0)
[2017-08-24] MEDS ORDERED: NS 250 ML IV 250 ML IV ONE (01:45)
[2017-08-24 01:57] LABS: BLOOD UREA NITROGEN 35 mg/dL (7-18); CALCIUM 8.3 mg/dL (8.5-10.1); CARBON DIOXIDE 27.7 mmol/L (21-32); CHLORIDE 101 mmol/L (98-107); CREATININE 4.78 mg/dL (0.55-1.02); SODIUM 139 mmol/L (136-145); TROPONIN I < 0.02 ng/mL (0-1.5); eGFR BLACK RACES 12 (>60); eGFR NON BLACK RACES 10 (>60)
[2017-08-24 02:01] LABS: LACTIC ACID 0.7 mmol/L (0.4-2.0)
--- NOTE | 2017-08-24 02:07 | RAD ---
AP chest. Indication: Chest pain with shortness of breath Comparison: 08/18/2017 Findings: Examination is significantly limited by motion artifact as patient was unable to follow leslie athing instructions. No dense airspace consolidation, pleural effusion or pneumothorax identified. He art size unchanged. No acute osseous abnormality. Impression: Limited evaluation of the thorax secondary to patient motion demonstrates no acute cardio pulmonary abnormality. Previous left lower lobe infiltrate is less conspicuous on this examination. Reported By:
[2017-08-24 02:40] LABS: ALANINE AMINOTRANSFERASE 48 Units/L (12-78); ALBUMIN 3.8 g/dL (3.4-5.0); ALKALINE PHOSPHATASE 73 Units/L (46-116); ASPARTATE AMINO TRANSFERASE 80 Units/L (15-37); TOTAL PROTEIN 6.8 g/dL (6.4-8.2)
[2017-08-24 02:41] LABS: CKMB % 0.2 % (<4); CREATINE KINASE 2911 Units/L (26-192); CREATINE KINASE MB 5.2 ng/mL (0-4.0)
[2017-08-24 02:59] LABS: BILIRUBIN,URINE NEGATIVE (NEGATIVE); BLOOD/HEMOGLOBIN,URINE 4+ (NEGATIVE); GLUCOSE, URINE NEGATIVE (NEGATIVE); KETONES,URINE NEGATIVE (NEGATIVE); LEUKOCYTE ESTERASE ,URINE NEGATIVE (NEGATIVE); NITRITES,URINE NEGATIVE (NEGATIVE); PROTEIN,URINE 2+ (NEGATIVE); UROBILINOGEN,URINE NORMAL (NORMAL)
[2017-08-24 03:06] LABS: ABG BASE EXCESS 1.7 mmol/L (-2.0-2.0); ABG HCO3 26.6 mmol/L (22-26)
[2017-08-24 03:06] LABS: APPEARANCE,URINE CLEAR (CLEAR); COLOR,URINE PALE YELLOW (YELLOW); RBC,URINE 0-2 /HPF (NONE SEEN); SQUAMOUS EPITHELIAL CELL,UR RARE /HPF (NEGATIVE)
[2017-08-24 03:07] LABS: BACTERIA,URINE NEGATIVE /HPF (NEGATIVE)
[2017-08-24] MEDS ORDERED: HumuLIN R SUBCUT PRN (03:31)
[2017-08-24] MEDS ORDERED: D50W ABBOJECT SYR IV ONE (03:31)
[2017-08-24] MEDS ORDERED: HumuLIN R ONE (03:36)
[2017-08-24] MEDS ORDERED: D50W ABBOJECT SYR ONE ×2 (03:37→04:53)
[2017-08-24] MEDS ORDERED: CATAPRES TAB 0.1 MG ONE (03:51)
[2017-08-24] MEDS ORDERED: ATIVAN INJ 2 MG VIAL IVP STA (04:29)
[2017-08-24 05:26] VITALS: BP 127/66
[2017-08-24] MEDS ORDERED: SNACK - Diabetic Appropriate PO SCH (20:00)
== END 2017-08-24 05:57 | disposition short-term general hospital (02) ==
LOC: ER 00:36
DX: J44.1 Chronic obstructive pulmonary disease with (acute) exacerbation (principal); R06.03 Acute respiratory distress; N18.6 End stage renal disease; Z99.2 Dependence on renal dialysis; I10 Essential (primary) hypertension; E87.5 Hyperkalemia
CPT/HCPCS: 36415; 36600; 71045; 80053; 81001; 82550; 82553; 82803; 83605; 84484; 85025; 86140; 87040; 93005; 93010; 94640; 96365; 96374; 96375; 99285; A4222; J0696; J1815; J2060; J2930; J3490; J7620

== ENCOUNTER 2017-09-06 20:49 | Emergency (ER) | payer OTHER, MEDICARE ==
[2017-09-06 21:02] VITALS: BMI 23.8
[2017-09-06] MEDS ORDERED: DUONEB 0.5 MG/3 MG ONE (21:12)
[2017-09-06] MEDS ORDERED: DUONEB 0.5 MG/3 MG NEB ONE (21:13)
[2017-09-06 21:25] LABS: ABG BASE EXCESS 7.5 mmol/L (-2.0-2.0)
[2017-09-06 21:26] LABS: ABG ALLEN TEST POS; ABG HCO3 33.6 mmol/L (22-26)
[2017-09-06 21:43] LABS: BASOPHILS % (AUTO) 0.6 % (0.2-1.0); EOSINOPHILS # (AUTO) 0.3 x10^3/uL (0.0-0.2); EOSINOPHILS % (AUTO) 4.8 % (0.9-2.9); HEMATOCRIT 36.6 % (36.0-47.0); HEMOGLOBIN 12.3 g/dL (12.0-16.0); LYMPHOCYTES % (AUTO) 19.3 % (21.0-51.0); MEAN CORPUSCULAR HEMOGLOBIN 31.7 pg (27.0-34.0); MEAN CORPUSCULAR HGB CONC 33.5 g/dL (33.0-35.0); MEAN CORPUSCULAR VOLUME 94.6 fL (80.0-100.0); MEAN PLATELET VOLUME 8.6 fL (7.4-11.0); MONOCYTES # (AUTO) 0.3 x10^3/uL (0.3-0.8); MONOCYTES % (AUTO) 5.6 % (0.0-13.0); NEUTROPHILS # (AUTO) 3.7 x10^3/uL (2.2-4.8); NEUTROPHILS % (AUTO) 69.7 % (42.0-75.0); PLATELET COUNT 88 X10^3/uL (150.0-450.0); RED BLOOD COUNT 3.87 X10^6/uL (3.5-5.4); RED CELL DISTRIBUTION WIDTH 15.1 % (11.6-16.5); WHITE BLOOD COUNT 5.3 X10^3/uL (3.6-10.0)
--- NOTE | 2017-09-06 21:54 | RAD ---
Indication: Shortness of breath Exam: Portable chest Technique: AP chest Comparison: 08/24/2017 Findings: The heart is borderline enlarged but unchanged. The pulmonary vessels are normal. The lungs are mildly hyperinflated with mild linear densities along the lung bases which are less prominent. N o consolidation or effusion is seen. Impression: Interval improvement in aeration of both lungs with resolving discoid atelectasis or resi dual scarring along the lung bases. Reported By:
[2017-09-06 21:58] LABS: BLOOD UREA NITROGEN 14 mg/dL (7-18); CALCIUM 7.1 mg/dL (8.5-10.1); CARBON DIOXIDE 33.9 mmol/L (21-32); CHLORIDE 100 mmol/L (98-107); CREATININE 3.68 mg/dL (0.55-1.02); SODIUM 141 mmol/L (136-145); TROPONIN I 0.02 ng/mL (0-1.5); eGFR BLACK RACES 16 (>60); eGFR NON BLACK RACES 14 (>60)
[2017-09-06 22:02] LABS: ALANINE AMINOTRANSFERASE 36 Units/L (12-78); ALBUMIN 3.8 g/dL (3.4-5.0); ALKALINE PHOSPHATASE 85 Units/L (46-116); ASPARTATE AMINO TRANSFERASE 21 Units/L (15-37); B-TYPE NATRIURETIC PEPTIDE 207 pg/mL (0-79); CKMB % 3.5 % (<4); CREATINE KINASE 109 Units/L (26-192); CREATINE KINASE MB 3.8 ng/mL (0-4.0); MAGNESIUM 2.1 mg/dL (1.7-2.9); TOTAL PROTEIN 6.8 g/dL (6.4-8.2)
--- NOTE | 2017-09-06 22:06 | DR.GENAD ---
HPI - PCP Primary Care Physician: KAYLI CHAVEZ - HPI Comment HPI Comment: O2 SAT IN LOW 90S. PATIENT HAVE COPD. - Complaint/Symptoms Chief Complaint Doctors Comments: INCREASING SOB SINCE DIALLYSIS TODAY. PATIENT COUGHING, PRODUCTIVE, YELLOW SPUTUM. NO FEVER. CHEST PAIN THAT IS GETTING WORSE. Chief Complaint:: SOB SINCE DIALYSIS - Nurses notes reviewed Nurses Notes Review: Yes - Source History Provided: Patient - Mode of Arrival Mode of Arrival: Ambulatory - Timing Onset of Chief Complaint: 09/06/17 Came on: Suddenly - Duration Duration: Constant Duration: Days - Severity Severity: Moderate PMH - PMH Past Medical History: Yes Past Medical History: COPD, Depression, Dialysis, Hypertension, Renal Disease Past Surgical History: Yes Surgical History: Neurosurgery Past Surgical History Comment: KIDNEY REMOVAL. GRAFT LEFT ARM - Family History History of Family Medical Conditions: Yes Family Medical History: Diabetes Mellitus, Hypertension - Social History Does patient currently use any type of tobacco product: Yes Have you used tobacco products in the last 12 months: Yes Type of Tobacco Use: Cigarettes Does any household member use tobacco: No Alcohol Use: None Do you use any recreational Drugs:: No Lives With: Family Lives Where: Home - infectious screening In the last 2 months have you had wt loss of >10#?: NO Have you had fever, night sweats or hemotysis?: No Have you traveled outside the country in the last 6 months?: No Isolation: Standard ROS - Review of Systems Constitutional: Weakness, Fatigue. negative: Chills, Fever Eyes: negative: Eye Pain, Discharge ENTM: Nose Discharge, Nose Congestion. negative: Ear Pain, Throat Pain Respiratoy: Productive Cough, Short of Breath, Wheezing. negative: Hemoptysis Cardiovascular: Chest Pain. negative: Edema, Palpitations Gastrointestinal/Abdominal: Abdominal Pain, Nausea Genitourinary: Dysuria, Other (ON DIALYSIS, DECREASE URINE OUT PUT.) Neurological: Other (NEUROPATHY) Musculoskeletal: Muscle Pain Hematologic/Lymphatic: Anemia Endocrine: No Symptoms Reported All Other Systems: Reviewed and Negative PE - Vital Signs Vitals: Temperature 98.9 F Pulse Rate [Apical] 97 Pulse Rate 94 Respiratory Rate 23 Blood Pressure [Left Femoral 175/97 Artery] Blood Pressure [Right Arm] 126/84 Blood Pressure [Left Arm] 143/86 Blood Pressure 165/90 O2 Sat by Pulse Oximetry 92 - General Limitations: No Limitations General Appearance: Alert - Head Head Exam: Normal Inspection - Eyes Eye exam: Normal Appearance - ENT ENT Exam: Normal External Ear Exam External Ear Exam: Normal External Inspection TM/Canal Exam: Bilateral Normal Nose Exam: Normal Nose Exam Mouth Exam: Normal Inspection Throat Exam: Normal Inspection - Neck Neck Exam: Trachea Midline - Chest Chest Inspection: Symmetric Chest Wall Rise - Respiratory Respiratory Exam: Normal Lung Sounds Bilat Respiratory Exam: Bilateral Wheezing, Bilateral Rhonchi, Lower Wheezing, Lower Rhonchi - Cardiovascular Cardiovascular Exam: Regular Rate, Normal Rhythm, Normal Heart Sounds - Abdominal Exam Abdominal Exam: Normal Bowel Sounds, Soft, Tenderness - Extremities Extremities Exam: negative: Edema - Back Back Exam: Paraspinal Tenderness - Neurologic Neurological Exam: Alert, Oriented X3 - Psychiatric Psychiatric Exam: Anxious - Skin Skin Exam: Normal Color MDM - Additional Information Additional Information Obtained From: Family - Differential Diagnosis Differential Diagnosis: PNEUMONIA, COPD EXACERBATION, RESPIRATORY DISTRESS, CHF , PULMONARY EDEMA Course - Treatment Treatment: SEE ORDERS. - Education/Counseling Education/Counseling: Patient, Family, Education Educated On: Diagnosis, Needs for Follow Up ROR - Labs Reviewed Laboratory Results Reviewed?: Yes Result Diagrams: 09/06/17 21:10 09/06/17 21:10 Laboratory: WBC 5.3 X10^3/uL (3.6-10.0) 09/06/17 21:10 RBC 3.87 X10^6/uL (3.5-5.4) 09/06/17 21:10 Hgb 12.3 g/dL (12.0-16.0) 09/06/17 21:10 Hct 36.6 % (36.0-47.0) 09/06/17 21:10 MCV 94.6 fL (80.0-100.0) 09/06/17 21:10 MCH 31.7 pg (27.0-34.0) 09/06/17 21:10 MCHC 33.5 g/dL (33.0-35.0) 09/06/17 21:10 RDW 15.1 % (11.6-16.5) 09/06/17 21:10 Plt Count 88 X10^3/uL (150.0-450.0) L 09/06/17 21:10 MPV 8.6 fL (7.4-11.0) 09/06/17 21:10 Neut % (Auto) 69.7 % (42.0-75.0) 09/06/17 21:10 Lymph % (Auto) 19.3 % (21.0-51.0) L 09/06/17 21:10 [place] % (Auto) 5.6 % (0.0-13.0) 09/06/17 21:10 Eos % (Auto) 4.8 % (0.9-2.9) H 09/06/17 21:10 Baso % (Auto) 0.6 % (0.2-1.0) 09/06/17 21:10 Neut # (Auto) 3.7 x10^3/uL (2.2-4.8) 09/06/17 21:10 Lymph # (Auto) 1.0 X10^3/uL (1.3-2.9) L 09/06/17 21:10 [place] # (Auto) 0.3 x10^3/uL (0.3-0.8) 09/06/17 21:10 Eos # (Auto) 0.3 x10^3/uL (0.0-0.2) H 09/06/17 21:10 Baso # (Auto) 0.0 X10^3/uL (0.0-0.1) 09/06/17 21:10 Absolute Nucleated RBC 0.0 /100WBC 09/06/17 21:10 INR Target Range - 09/06/17 21:10 INR 0.95 (0.8-1.3) 09/06/17 21:10 APTT 29.1 SECONDS (22.9-36.5) 09/06/17 21:10 PTT Comment - 09/06/17 21:10 D-Dimer 578 ng/mL (0-400) H* 09/06/17 21:10 Sample Site Rr 09/06/17 21:20 ABG pH 7.410 (7.35-7.45) 09/06/17 21:20 ABG pCO2 53.0 mmHg (35.0-45.0) H* 09/06/17 21:20 ABG pO2 62.0 mmHg (80.0-100.0) L 09/06/17 21:20 ABG HCO3 33.6 mmol/L (22-26) H* 09/06/17 21:20 ABG O2 Saturation 92.0 % (90-100) 09/06/17 21:20 ABG Base Excess 7.5 mmol/L (-2.0-2.0) H 09/06/17 21:20 [place] Test Pos 09/06/17 21:20 A-a Gradient 100.0 mmHg 09/06/17 21:20 FiO2 32.000 09/06/17 21:20 Blood Gas Comments [place] well ae 09/06/17 21:20 Sodium 141 mmol/L (136-145) 09/06/17 21:10 Corrected Sodium TNP 09/06/17 21:10 Potassium 3.7 mmol/L (3.5-5.1) 09/06/17 21:10 Chloride 100 mmol/L (98-107) 09/06/17 21:10 Carbon Dioxide 33.9 mmol/L (21-32) H 09/06/17 21:10 BUN 14 mg/dL (7-18) 09/06/17 21:10 Creatinine 3.68 mg/dL (0.55-1.02) H 09/06/17 21:10 Est GFR (MDRD) Af Amer 16 (>60) L 09/06/17 21:10 Est GFR (MDRD) Non-Af 14 (>60) L 09/06/17 21:10 Glucose 90 mg/dL (65-99) 09/06/17 21:10 Calcium 7.1 mg/dL (8.5-10.1) L 09/06/17 21:10 Corrected Calcium TNP 09/06/17 21:10 Magnesium 2.1 mg/dL (1.7-2.9) 09/06/17 21:10 Total Bilirubin 0.40 mg/dL (0.2-1.0) 09/06/17 21:10 AST 21 Units/L (15-37) 09/06/17 21:10 ALT 36 Units/L (12-78) 09/06/17 21:10 Alkaline Phosphatase 85 Units/L (46-116) 09/06/17 21:10 Creatine Kinase 109 Units/L (26-192) 09/06/17 21:10 CK-MB (CK-2) 3.8 ng/mL (0-4.0) 09/06/17 21:10 CK/CKMB % Calc 3.5 % (<4) 09/06/17 21:10 Troponin I 0.02 ng/mL (0-1.5) 09/06/17 21:10 B-Natriuretic Peptide 207 pg/mL (0-79) H 09/06/17 21:10 Total Protein 6.8 g/dL (6.4-8.2) 09/06/17 21:10 Albumin 3.8 g/dL (3.4-5.0) 09/06/17 21:10 Globulin 3.0 g/dL (2.5-4.5) 09/06/17 21:10 Albumin/Globulin Ratio 1.3 Ratio (1.1-2.1) 09/06/17 21:10 - XRAY XRAY Interpreted by: Radiologist XRAY Findings: REPORT DISCUSS WITH PATIENT AND FAMILY. - EKG Rhythm: NSR (EKG NOTED) - Diagnosis Discharge Problem: COPD (chronic obstructive pulmonary disease) Qualifiers: COPD type: unspecified COPD Qualified Code(s): J44.9 - Chronic obstructive pulmonary disease, unspecified - Discharge Plan Disposition: 01 HOME, SELF-CARE Condition: Stable Prescriptions: Cefdinir [Omnicef Cap 300 mg] 300 mg PO BID #20 cap - Follow ups/Referrals Follow ups/Referrals: NFD,None [Primary Care Provider] - 1 day - Instructions Instructions: Chronic Obstructive Pulmonary Disease Exacerbation, Acute Bronchitis, Adult, [id number] Additional Instructions: RETURN TO ED IF WORSE.
[2017-09-06] MEDS ORDERED: ATIVAN INJ 2 MG VIAL IVP ONE (22:55)
[2017-09-06] MEDS ORDERED: ATIVAN INJ 2 MG VIAL ONE (23:31)
[2017-09-06] MEDS ORDERED: SOLU-Medrol 125 MG VIAL IVP ONE (23:59)
[2017-09-07] MEDS ORDERED: DUONEB 0.5 MG/3 MG NEB ONE
[2017-09-07] MEDS ORDERED: DUONEB 0.5 MG/3 MG ONE (00:19)
[2017-09-07] MEDS ORDERED: SOLU-Medrol 125 MG VIAL ONE (00:19)
[2017-09-07] MEDS ORDERED: ROCEPHIN 1 GM IV PREMIX 1 GM/50 ML IV.SOLN. IV ONE ×2 (00:23→00:27)
[2017-09-07 01:42] VITALS: BP 126/84
== END 2017-09-07 01:46 | disposition home or self-care (01) ==
LOC: ER 21:10
DX: J44.9 Chronic obstructive pulmonary disease, unspecified (principal); R06.02 Shortness of breath; R79.1 Abnormal coagulation profile
CPT/HCPCS: 36415; 36600; 71045; 80053; 82550; 82553; 82803; 83735; 83880; 84484; 85025; 85378; 85610; 85730; 93005; 93010; 94640; 96365; 96374; 96375; 99283; 99285; A4216; A4222; J0696; J2060; J2930; J7620